=== PATIENT | male | born 1975 | race Caucasian/White ===

== ENCOUNTER 2018-03-31 10:28 | Emergency (ER) | payer BC ==
[~2018-03-31] VITALS: Ht 175.3 cm; Wt 80.7 kg
[~2018-03-31 10:28] MED LIST: ADAL40PE SQ; BUPR1PAT7 ID; COLE1TAB2 PO; DULO60CA7 PO; ELET40TA PO; FLUT9.9S NAS; INDO50CA PO; PREG300C PO; RABE20TA26 PO
[2018-03-31 10:31] VITALS: BP 116/83
== END 2018-03-31 11:02 | disposition home or self-care (01) ==
LOC: ED 10:53
DX: G43.909 Migraine, unspecified, not intractable, without status migrainosus (principal); K50.90 Crohn's disease, unspecified, without complications; F17.200 Nicotine dependence, unspecified, uncomplicated; Z76.0 Encounter for issue of repeat prescription
CPT/HCPCS: 99283